=== PATIENT | female | born 1955 | race Caucasian/White ===

== ENCOUNTER → 2020-10-04 | Outpatient (CLI) | payer MEDICARE ==
[2020-10-04 11:05] LABS: Basophils # (A) 0.1 k/uL (0-0.2); Basophils % (A) 1 %; Eosinophils # (A) 0.2 k/uL (0-0.7); Eosinophils % (A) 2 %; HCT 44.2 % (34.0-46.0); Lymphocytes # (A) 1.5 k/uL (1.0-4.8); Lymphocytes % (A) 21 %; MCH 30.7 pg (25.0-35.0); MCV 90.4 fL (80.0-100.0); Mean Platelet Volume 6.7; Monocytes # (A) 0.4 k/uL (0-1.0); Monocytes % (A) 6 %; Neutrophils % (A) 69 %; Platelet Count 207 k/uL (150-450); RBC 4.89 m/uL (3.80-5.40); RDW 13.3 % (11.5-15.5); WBC 7.3 k/uL (3.8-10.6)
[2020-10-04 11:18] LABS: African American GFR (CKD) >90 (>60 ml/min/1.73 sqM); Anion Gap 7 mmol/L; Blood Urea Nitrogen 13 mg/dL (7-17); Calcium 10.3 mg/dL (8.4-10.2); Carbon Dioxide 31 mmol/L (22-30); Chloride 104 mmol/L (98-107); Glucose 104 mg/dL (74-99); Non-African American GFR(CKD) >90 (>60 ml/min/1.73 sqM); Potassium 5.5 mmol/L (3.5-5.1); Sodium 142 mmol/L (137-145)
== END | disposition home or self-care (01) ==
LOC: LABPAT 10:12
PROVIDERS: ATTEND Obstetrics & Gynecology
DX: Z01.812 Encounter for preprocedural laboratory examination (principal); N81.9 Female genital prolapse, unspecified; N81.10 Cystocele, unspecified
CPT/HCPCS: 36415; 80048; 85025; 86850; 86900; 86901

== ENCOUNTER 2020-10-11 09:49 | Day surgery (SDC) | payer MEDICARE ==
[2020-10-05 10:20] VITALS: BMI 28.3
[~2020-10-11 09:49] MED LIST: DEXAMETHASONE SOD PHOSPHATE 4 MG/ML 1 ML VIAL IV ONE; HYDROmorphone 0.5 MG/0.5 ML SYRINGE IVP PRN; LIDOCAINE 1% (10MG/ML) FOR IV START INTRADERMA PRN; MIDAZOLAM 2 MG/2 ML VIAL IV PRN; ONDANSETRON 4 MG/2 ML VIAL IVP ONE
--- NOTE | 2020-10-11 09:51 | P.HPOB ---
History of Present Illness H&P Date: 10/11/20 Chief Complaint: Uterine prolapse Magdalena is a 65-year-old female with worsening vaginal prolapse. Symptoms have been worsening over a number of months and it has gotten to the point where she is uncomfortable and unable to function well due to same. She is scheduled for a robotic-assisted laparoscopic hysterectomy with bilateral salpingo- oophorectomy and combined with urology performing a sacral colpopexy. Risks/benefits/alternatives were reviewed with the patient in great detail and all questions have been answered for her prior to proceeding to the operating room. He has been cleared by cardiology for this surgery. Will have medicine on consultation for management of medical issues. Past Medical History Past Medical History: Cancer, GI Bleed, Hyperlipidemia, Hypertension, Skin Disorder Additional Past Medical History / Comment(s): hx squamous cell skin cancer, bladder prolapse History of Any Multi-Drug Resistant Organisms: None Reported Past Surgical History: Appendectomy, Cholecystectomy, Heart Catheterization, Tubal Ligation Additional Past Surgical History / Comment(s): aortic valve replacement, COLONOSCOPY Past Anesthesia/Blood Transfusion Reactions: Postoperative Nausea & Vomiting (PONV) Smoking Status: Never smoker - Past Family History Mother Family Medical History: Cancer Additional Family Medical History / Comment(s): breast Medications and Allergies Home Medications Medication Instructions Recorded Confirmed Type Aspirin [Adult Low Dose Aspirin EC] 2 tab PO DAILY 12/11/15 10/05/20 History Atorvastatin [Lipitor] 10 mg PO HS 12/11/15 10/05/20 History Losartan [Cozaar] 50 mg PO HS 12/11/15 10/05/20 History Metoprolol Tartrate [Lopressor] 50 mg PO BID 12/11/15 10/05/20 History Multivitamins, Thera [Multivitamin] 1 tab PO DAILY 12/11/15 10/05/20 History Allergies Allergy/AdvReac Type Severity Reaction Status Date / Time No Known Allergies Allergy Verified 10/05/20 09:59 Exam Osteopathic Statement: *. No significant issues noted on an osteopathic structural exam other than those noted in the History and Physical/Consult. - OBG Physical Exam Breast: both: normal (no masses) Abdomen: bowel sounds normal, no diffuse tenderness, no bruit present, no guarding noted, no hepatomegaly, no splenomegaly, no mass Vulva: both: normal Vagina: normal moisture, no discharge Cervix: no lesion, no discharge Uterus: normal size, normal contour Adnexa: both: normal Anus/Rectum: normal perianal skin, no rectal mass, no hemorrhoids, heme negative
[2020-10-11] MEDS: LACTATED RINGERS 1,000 ML IV SCH (10:29)
[2020-10-11] MEDS ORDERED: MIDAZOLAM 2 MG/2 ML VIAL ONE (11:36)
[2020-10-11] MEDS ORDERED: NEOSTIGMINE 1 MG/ML 10 ML VIAL ONE (11:36)
[2020-10-11] MEDS ORDERED: LIDOCAINE 1% INJ 10MG/ML (20 ML MDV) ONE (11:36)
[2020-10-11] MEDS ORDERED: PHENYLEPHRINE-0.9% NACL SYG 1,000 MCG/10 ML SYRINGE ONE (11:36)
[2020-10-11] MEDS ORDERED: PROPOFOL 10 MG/ML 20 ML VIAL IV ONE ×2 (11:36)
[2020-10-11] MEDS ORDERED: LIDOCAINE 2%-EPI 1:100,000 20 ML VIAL ONE (11:36)
[2020-10-11] MEDS ORDERED: fentaNYL (PF) 50 MCG/ML 2 ML AMP ONE (11:36)
[2020-10-11] MEDS ORDERED: GLYCOPYRROLATE 0.2 MG/ML 2 ML VIAL ONE (11:36)
[2020-10-11] MEDS ORDERED: ceFAZolin 1,000 MG VIAL ONE (11:36)
[2020-10-11] MEDS ORDERED: SODIUM CHLORIDE 0.9% 100 ML BAG ONE (11:36)
[2020-10-11] MEDS ORDERED: ROCURONIUM 10 MG/ML (5 ML VIAL) IV ONE (11:36)
[2020-10-11] MEDS ORDERED: ROPIVACAINE 5 MG/ML 30 ML VIAL ONE (11:36)
--- NOTE | 2020-10-11 12:10 | P.HPIHPCON ---
History of Present Illness H&P Date: 10/11/20 Chief Complaint: Cystocele This is a 65 yo female with hx of stage III cystocele. She is symptomatic secondary to her prolapse. Option of pessary, vaginal repair and Robotic sacrocolpopexy were discussed with her in details. Discussed risk and benefit of each approach. She agreed to proceed with robotic assisted laproscopic sacrocolpopexy, she will also undergo robotic hysterectomy at the same time. Discussed with her for the sacrocolpopexy we will be using mesh. Discussed risk of mesh erosion through the vagina, bladder and rectum. Discussed potential of needing additional operation in the future. Discussed risk of recurrence. She understood all risks and agreed to proceed. Consent for Procedure: I have explained the operation/procedure to the patient, including the risks, benefits, side effects, alternative therapies (including not receiving the proposed treatment or service), the likelihood of the patient achieving his/her goals, and potential recuperation problems for the procedure/sedation/analgesia, as well as any blood products, if indicated. I also explained to the patient the risks, benefits and side effects of the alternatives, as well as the risks related to not receiving the proposed procedure, care, treatment, or services. Past Medical History Past Medical History: Cancer, GI Bleed, Hyperlipidemia, Hypertension, Skin Disorder Additional Past Medical History / Comment(s): hx squamous cell skin cancer, bladder prolapse History of Any Multi-Drug Resistant Organisms: None Reported Past Surgical History: Appendectomy, Cholecystectomy, Heart Catheterization, Tubal Ligation Additional Past Surgical History / Comment(s): aortic valve replacement, COLONOSCOPY Past Anesthesia/Blood Transfusion Reactions: Postoperative Nausea & Vomiting (PONV) Smoking Status: Never smoker - Past Family History Mother Family Medical History: Cancer Additional Family Medical History / Comment(s): breast Medications and Allergies Home Medications Medication Instructions Recorded Confirmed Type Aspirin [Adult Low Dose Aspirin EC] 2 tab PO DAILY 12/11/15 10/11/20 History Atorvastatin [Lipitor] 10 mg PO HS 12/11/15 10/11/20 History Losartan [Cozaar] 50 mg PO HS 12/11/15 10/11/20 History Metoprolol Tartrate [Lopressor] 50 mg PO BID 12/11/15 10/11/20 History Multivitamins, Thera [Multivitamin] 1 tab PO DAILY 12/11/15 10/11/20 History Allergies Allergy/AdvReac Type Severity Reaction Status Date / Time No Known Allergies Allergy Verified 10/11/20 10:22 Surgical - Exam Vital Signs Temp Pulse Resp BP Pulse Ox 97.3 F L 57 L 16 145/67 99 10/11/20 10:15 10/11/20 10:15 10/11/20 10:15 10/11/20 10:15 10/11/20 10:15 Results - Labs 10/11/20 10:39
[2020-10-11] MEDS ORDERED: BUPIVACAINE (PF) 0.25% 30 ML VIAL SQ ONE ×2 (12:18)
--- NOTE | 2020-10-11 13:19 | P.OP ---
Date of Procedure: 10/11/20 Preoperative Diagnosis: Uterine prolapse Postoperative Diagnosis: Same Procedure(s) Performed: Robotic-assisted laparoscopic hysterectomy with bilateral salpingo-oophorectomy Anesthesia: EDDIE Surgeon: Benitez Colby Special Delivery Mail Carrier #1: Sushma Modi Estimated Blood Loss (ml): 100 Pathology: other (Uterus, cervix, fallopian tubes and bilateral ovaries) Condition: stable Disposition: floor Operative Findings: Complete procidentia Description of Procedure: She will was taken to the operating suite where a general anesthetic was found be adequate. She was prepped and draped in the normal sterile fashion and placed in the dorsal lithotomy position. Initially a weighted speculum was inserted in the vagina and into lip of cervix identified and grasped with single-tooth tenaculum. Cervix was then dilated and uterus was sounded to 10 cm. Zoey manipulator was then inserted without difficulty the cup size of 2.5 sutures placed at 3 and 9 to assist in pulling the cervix completely down into the cup due to the complete procidentia. Once this was completed Lin cath was placed other incidents removed and gloves were changed. Attention was then turned to the abdominal portion procedure where 2 mL of quarter percent Marcaine was injected superior to the umbilicus and through this a 5 mm skin incision was made and through this a 5 mm trocar and sleeve were inserted with optical under direct visualization. Once peritoneal placement was assured gas was allowed to fully insufflate the abdomen and patient was then placed in steep Trendelenburg position. 2 lateral ports were then placed section on the same line as the um bilicus 10 cm lateral to umbilicus. A fourth port and sleeve was inserted through a 1 cm incision between the left lateral and the medial ports. Robot was then brought in and docked and once fully docked a scissor and [place] grasper were placed. At this point I broke scrub and went to the console. Uterus was elevated and tipped to the right side and the left infundibular pelvic ligament was identified cauterized and transected. Moving through the mesosalpinx tissue the ovary was dissected free by cautery and cutting. Once to the round ligament Remley was arise transected and anterior posterior leafs the broad ligament were developed. Uterine vasculature was then cauterized through the cardinal and uterosacral ligaments. Once this was completed bladder flap was identified and entered and undermined with [place] and incised across face uterus with a scissor. Bladder flap was then bluntly dissected, the out of the operative field. Once completed similar fashion the right side of the uterus was developed. Once this was completed balloon was blown up in the Zoey manipulator and the uterus was firmly pressed in an anterior colpotomy was made. This cup was then followed around 3 and 60 following the cup the hallway maintaining excellent hemostasis through the process. Once uterus was free was brought into the vagina to maintain pneumoperitoneum. Pedicles were then ve rified hemostatic and then the vaginal cuff was closed with to OB lock suture in a running fashion. At this point urology took over the case please see their dictation for the conclusion of the procedure.
[2020-10-11] MEDS ORDERED: LACTATED RINGERS 1,000 ML IV ONE ×2 (13:26→16:31)
--- NOTE | 2020-10-11 15:19 | P.OP ---
Date of Procedure: 10/11/20 Preoperative Diagnosis: cystocele Postoperative Diagnosis: same Procedure(s) Performed: Robotic assisted laproscopic Sacrocolpopexy Implants: Mesh Anesthesia: ESTHELAA Surgeon: Siddhartha Leon Design Analyst #1: Wyatt Garrett Estimated Blood Loss (ml): 25 Pathology: other Condition: stable Disposition: PACU Indications for Procedure: This is a 65 yo female with hx of stage III cystocele. She is symptomatic secondary to her prolapse. Option of pessary, vaginal repair and Robotic sacrocolpopexy were discussed with her in details. Discussed risk and benefit of each approach. She agreed to proceed with robotic assisted laproscopic sacrocolpopexy, she will also undergo robotic hysterectomy at the same time. Discussed with her for the sacrocolpopexy we will be using mesh. Discussed risk of mesh erosion through the vagina, bladder and rectum. Discussed potential of needing additional operation in the future. Discussed risk of recurrence. She understood all risks and agreed to proceed Description of Procedure: She was taken to the OR and administered general anesthesia and placed in lithotomy position. She was prepped and draped in sterile fashion. A Lin catheter was placed. Initially the robotic hysterctomy was performed by Dr Colby, please see his op note for that portion of surgery. An additional 8 mm robotic port was placed medially on the left. The robot was re docked and the administration assistant sat between the patient's legs with a vaginal sizer. With firm upward traction on the vagina and angle downwards, and with the monopolar scissors and fenestrated bipolar and the bladder was completely reflected off the vagina. The pelvic floor. Care was taken to stay in the avascular plane between the bladder and the vagina. There was no entry into the bladder or the vagina. Minor bleeding points were controlled with bipolar. Once the anterior dissection was completed the attention was directed to the posterior dissection. The administration assistant pushed the sizer in an upwards and the r ectum was completely dissected off the vagina down to the perineal body. Again all minor bleeding points were coagulated. Tension was then directed to the sacral promontory. The sigmoid was reflected to the left with the fourth arm, and an incision was made on the peritoneum over the sacral promontory. The entire sacral promontory was dissected, and the fat was excised to expose adequate amount of periosteum and bone to place 2 layers of sutures. Hemostasis was confirmed. The peritoneum posteriorly was incised from the sacral promontory to the vaginal opening to facilitate placement of the mesh. Attention was now directed to the Y mesh. The Y mesh was trimmed to the necessary size and introduced into the body through the 12 mm port. The Y mesh was placed over the vagina with one limb each on the anterior and posterior vaginal wall. Using 2-0 Ethibond interrupted sutures 3 layers of sutures were placed thereby fixing the mesh to the anterior vaginal wall. Care was taken to advance the mesh all the way distally. Attention was then directed to the posterior vaginal wall and the mesh was fixed to the posterior vaginal wall using 3 layers of 2-0 Ethibond, 2 sutures in each layer. Again the sutures were placed as distally as possible to the perineal body. Attention was taken so as to not enter the vagina with the sutures. Once the 2 limbs of the Y mesh was securely placed, attention was directed to the sacral promontory. The administration assistant was asked to push the sizer firmly superiorly and the single Lembert of the Y mesh was then fixed to the sacral promontory in 2 layers with interrupted sutures. 2-0 PDS interrupted sutures were used to fix the mesh to the periosteum of the sacral promontory. Once this was completed the sizer was removed from the vagina and inspection of the vagina with a speculum showed complete resolution of the cystocele. Hemostasis was again confirmed. A 2-0 lock was then used to close the peritoneum incision so as to extrapertonialize the mesh completely. The 12 mm administration assistant port was closed using a danita-thompason using 0 Vicryl. All the sutures and mesh pieces were removed. A count was performed which was correct. And the abdomen was desufflated and all ports were removed. All the incisions were closed with 4-0 Monocryl subcuticular sutures and the patient was sent to recovery in stable condition with the Lin catheter
[2020-10-11] MEDS ORDERED: HYDROcodone/APAP 5-325MG 1 EACH TAB PO PRN (15:21)
[2020-10-11] MEDS ORDERED: KETOROLAC 15 MG/ML 1 ML VIAL IVP ONE (16:09)
[2020-10-11] MEDS ORDERED: D5-0.45% NACL WITH KCL 20MEQ/L 1,000 ML IV SCH (16:30)
[2020-10-11] MEDS: KETOROLAC 15 MG/ML 1 ML VIAL IVP SCH (17:07)
[2020-10-11] MEDS: HEPARIN SODIUM,PORCINE/PF 5,000 UNIT/0.5 ML SYRINGE SQ SCH (17:25)
[2020-10-11] MEDS: DEXTROSE 5%-0.45% NACL 1,000 ML IV SCH (17:26)
--- NOTE | 2020-10-11 20:11 | P.ANPRN ---
Procedure Note - Anesthesia - Nerve Block Performed Bilateral Erector Spinae Single Time Out Performed: Yes Date of Procedure: 10/11/20 Procedure Start Time: Procedure Stop Time: Location of Patient: PreOp Indication: Acute Post-Operative Pain, Requested by Surgeon Sedation Type: Sedate with meaningful contact maintained Preparation: Sterile Prep Position: Prone Needle Types: Pajunk Needle Gauge: 21 Ultrasound used to visualize needle placement: Yes Ultrasound used to observe medication spread: Yes Blood Aspirated: No Pain Paresthesia on Injection Noted: No Resistance on Injection: Normal Image Stored and Saved: Yes Events: Uneventful and Well Tolerated (Ropivacaine 0.5% 15 mL plus Xylocaine 1% with epi 13 mL given at L1 bilaterally)
[2020-10-11] MEDS: ATORVASTATIN 10 MG TAB PO SCH (20:37)
[2020-10-11] MEDS: METOPROLOL TARTRATE 50 MG TAB PO SCH (21:05)
[2020-10-12] MEDS: HEPARIN SODIUM,PORCINE/PF 5,000 UNIT/0.5 ML SYRINGE SQ SCH ×4 (00:26→23:31)
[2020-10-12] MEDS: KETOROLAC 15 MG/ML 1 ML VIAL IVP SCH ×5 (00:26→23:31)
[2020-10-12] MEDS: DEXTROSE 5%-0.45% NACL 1,000 ML IV SCH ×3 (05:00→17:00)
[2020-10-12] MEDS: LACTATED RINGERS 1,000 ML IV SCH (05:54)
[2020-10-12] MEDS: METOPROLOL TARTRATE 50 MG TAB PO SCH ×2 (09:02→20:24)
--- NOTE | 2020-10-12 09:16 | P.PN ---
Progress Note - Text Progress Note Date: 10/12/20 Magdalena is seen and evaluated postop day 1. Overall she is doing very well. She voices minimal complaints and only has mild pain. Her Lin catheter still in place and is potentially a little concentrated but this will be deferred to urology. Her vital signs are otherwise stable, infection blood pressures a little low this morning the help her blood pressure medication. From a gynecologic standpoint she should be able to be discharged whenever urology feel she is able to go home. We'll have her follow up with me in 2 weeks as she is up appointment with urology in 1 week but she is aware that she can contact me at any time of be happy to see her sooner if needed. All the questions are answered for her at this time and will plan to see her in approximately 2 weeks. Discharge instructions and discharge planning will be done by urology.
--- NOTE | 2020-10-12 15:38 | P.CONS ---
History of Present Illness - Reason for Consult Consult date: 10/12/20 medical management hypertension,PONV Requesting physician: Benitez Colby - Chief Complaint Uterine prolapse, status post robotic-assisted laparoscopic hysterectomy wi - History of Present Illness This is 65-year-old female admitted with uterine prolapse, cystocele, status p ost robotic-assisted laparoscopic hysterectomy and bilateral salpingo- oophorectomy, sacrocolpopexy. Tolerated procedure well. Passing flatus. Stood up at bedside and marched, tolerating exertion well. Good diet intake with no nausea vomiting or diarrhea. Minimal discomfort ,pain controlled. Borderline hypotension, systolic blood pressure 100, receiving IV fluid hydration. Afebrile. Denies chest pain, palpitations or shortness of breath. Review of Systems Constitutional: Denied any fatigue denied any fever. Cardio vascular: denied any chest pain, palpitations Gastrointestinal denied any nausea vomiting Pulmonary: Denied any shortness of breath cough Neurologic denied any new focal deficits ROS Statement: Those systems with pertinent positive or pertinent negative responses have been documented in the HPI. ROS Other: All systems not noted in ROS Statement are negative. Past Medical History Past Medical History: Cancer, GI Bleed, Hyperlipidemia, Hypertension, Skin Disorder Additional Past Medical History / Comment(s): hx squamous cell skin cancer, bladder prolapse History of Any Multi-Drug Resistant Organisms: None Reported Past Surgical History: Appendectomy, Cholecystectomy, Heart Catheterization, Tubal Ligation Additional Past Surgical History / Comment(s): aortic valve replacement, COLONOSCOPY Past Anesthesia/Blood Transfusion Reactions: Postoperative Nausea & Vomiting (PONV) Past Psychological History: No Psychological Hx Reported Smoking Status: Never smoker Past Alcohol Use History: None Reported Past Drug Use History: None Reported - Past Family History Mother Family Medical History: Cancer Additional Family Medical History / Comment(s): breast Medications and Allergies Home Medications Medication Instructions Recorded Confirmed Type Aspirin [Adult Low Dose Aspirin EC] 2 tab PO DAILY 12/11/15 10/11/20 History Atorvastatin [Lipitor] 10 mg PO HS 12/11/15 10/11/20 History Losartan [Cozaar] 50 mg PO HS 12/11/15 10/11/20 History Metoprolol Tartrate [Lopressor] 50 mg PO BID 12/11/15 10/11/20 History Multivitamins, Thera [Multivitamin] 1 tab PO DAILY 12/11/15 10/11/20 History Allergies Allergy/AdvReac Type Severity Reaction Status Date / Time No Known Allergies Allergy Verified 10/11/20 10:22 Physical Exam Vitals: Vital Signs Temp Pulse Resp BP BP BP Pulse Ox 10/12/20 08:20 98.0 F 62 20 100/61 96 10/12/20 02:02 98.1 F 68 16 100/57 95 10/11/20 22:06 93 L 10/11/20 21:08 100 10/11/20 19:45 70 16 121/75 97 10/11/20 18:45 73 16 110/67 93 L 10/11/20 18:15 68 16 117/71 93 L 10/11/20 17:45 64 16 112/68 93 L 10/11/20 17:30 61 16 125/68 97 10/11/20 17:15 63 16 119/71 95 10/11/20 17:00 98.1 F 62 14 120/61 98 10/11/20 16:35 63 16 107/54 96 10/11/20 16:20 60 16 127/60 98 10/11/20 16:05 57 L 16 123/64 100 10/11/20 15:50 57 L 16 113/62 100 10/11/20 15:39 96.8 F L 16 L 16 153/62 98 Intake and Output 10/12/20 10/12/20 10/12/20 06:59 14:59 22:59 Intake Total 1100 Output Total 900 Balance 200 Intake: Intake, IV Titration 700 Amount Dextrose 5%-0.45% NaCl 1, 700 000 ml @ 125 mls/hr IV . Q8H [facility] Rx#:[id number] Oral 400 Output: Urine 900 Other: Voiding Method Indwelling Catheter Indwelling Catheter PHYSICAL EXAM: VITAL SIGNS: As above GENERAL: Sitting up in bed, no acute distress HEENT: Conjunctivae normal. eyes normal. Oral mucosa moist NECK: No JVD. No thyroid enlargement. No LNs CARDIOVASCULAR: S1, S2 regular..No murmur RESPIRATION: Breath sounds diminished in the bases. No rhonchi or crackles. No bronchial breathing. ABDOMEN: Soft, nondistended, status post surgery . No guarding. Bowel sounds heard. LEGS: No edema. no swelling PSYCHIATRY: Alert and oriented X3, mood and affect normal. NERVOUS SYSTEM: Cranial N 2-12 grossly normal. Moves all 4 limbs.No focal deficits. Strength and sensation grossly intact. Skin: Warm and dry, no rash Lymphatic system. No LN neck axilla. Results CBC & Chem 7: 10/11/20 10:39 Assessment and Plan Assessment: uterine prolapse, cystocele, status post robotic-assisted laparoscopic hysterectomy and bilateral salpingo-oophorectomy, sacrocolpopexy. Hypertension hyperlipidemia Squamous cell skin cancer history of Plan: Continue on current medication regime, monitoring and to make treatment. Labs pending. Gentle IV fluid hydration. Patient eager for discharge. Lin catheter present, managed by urology. Increase ambulation as tolerated. Aggressive pulmonary toileting with incentive spirometer reinforced. Follow-up with primary in 1 week after discharge. Thank you for the consult of this pleasant lady. The impression and plan of care has been dictated as directed. : I performed a history and examination of this patient, discussed the same with the dictator. I agree with the dictator's note ,documented as a scribe. Any additional findings or plans will be noted.
[2020-10-12 16:12] LABS: Basophils % (A) 0 %; Eosinophils # (A) 0.1 k/uL (0-0.7); Eosinophils % (A) 1 %; HCT 33.4 % (34.0-46.0); Lymphocytes # (A) 1.6 k/uL (1.0-4.8); Lymphocytes % (A) 20 %; MCH 30.2 pg (25.0-35.0); MCHC 33.1 g/dL (31.0-37.0); Mean Platelet Volume 7.4; Monocytes # (A) 0.4 k/uL (0-1.0); Monocytes % (A) 5 %; Neutrophils # (A) 5.7 k/uL (1.3-7.7); Neutrophils % (A) 72 %; Platelet Count 118 k/uL (150-450); RBC 3.67 m/uL (3.80-5.40); WBC 7.8 k/uL (3.8-10.6)
[2020-10-12 16:21] LABS: African American GFR (CKD) >90 (>60 ml/min/1.73 sqM); Anion Gap 3 mmol/L; Blood Urea Nitrogen 18 mg/dL (7-17); Calcium 8.4 mg/dL (8.4-10.2); Carbon Dioxide 25 mmol/L (22-30); Chloride 100 mmol/L (98-107); Glucose 114 mg/dL (74-99); Non-African American GFR(CKD) >90 (>60 ml/min/1.73 sqM); Potassium 3.5 mmol/L (3.5-5.1); Sodium 128 mmol/L (137-145)
[2020-10-12 16:32] LABS: HGB 11.1 gm/dL (11.4-16.0)
[2020-10-12] MEDS: PANTOPRAZOLE 40 MG/10 ML VIAL IVP SCH (16:54)
--- NOTE | 2020-10-12 17:30 | P.PN ---
Progress Note - Text Progress Note Date: 10/12/20 The patient is feeling well. She is tolerating diet and ambulating. The Lin catheter is draining clear yellow urine. The abdomen is soft and nondistended. She is afebrile with stable vital signs. The Lin catheter will be removed tomorrow morning. Discharge home tomorrow is anticipated.
[2020-10-12 20:20] VITALS: PULSE 67
[2020-10-12] MEDS: ATORVASTATIN 10 MG TAB PO SCH (20:22)
[2020-10-13] MEDS: DEXTROSE 5%-0.45% NACL 1,000 ML IV SCH ×2 (01:51→08:41)
[2020-10-13] MEDS: KETOROLAC 15 MG/ML 1 ML VIAL IVP SCH (05:53)
[2020-10-13] MEDS: LACTATED RINGERS 1,000 ML IV SCH (05:56)
[2020-10-13 08:28] VITALS: BP 132/75; RESP 18; TEMP 97.8
[2020-10-13] MEDS: PANTOPRAZOLE 40 MG/10 ML VIAL IVP SCH (08:40)
[2020-10-13] MEDS: HEPARIN SODIUM,PORCINE/PF 5,000 UNIT/0.5 ML SYRINGE SQ SCH (08:40)
[2020-10-13] MEDS: METOPROLOL TARTRATE 50 MG TAB PO SCH (08:40)
[2020-10-13] MEDS ORDERED: DEXTROSE 5%-0.9% NACL 1,000 ML IV SCH (10:30)
--- NOTE | 2020-10-13 10:48 | P.DS ---
Providers Expected date of discharge: 10/13/20 Attending physician: Benitez Colby Consults: 10/11/20 17:42 Consult Physician Routine Consulting Provider: Joseph Arvizu Reason/Comments: medical management Do you want consulting provider notified?: Yes Primary care physician: Joseph Arvizu Hospital Course: On the day of admission, the patient underwent an uncomplicated hysterectomy, bilateral salpingo-oophorectomy, and sacrocolpopexy. On the first postoperative day, she was ambulating without difficulty. On the second postoperative day, she reported minimal incisional discomfort. The Lin catheter was removed on the second postoperative day, and she was able to void without difficulty. She denied chest pain, dyspnea, nausea, and vomiting. Procedures: Robotic-assisted laparoscopic hysterectomy, bilateral salpingo-oophorectomy, and sacrocolpopexy on 10/11/2020. Patient Condition at Discharge: Good Plan - Discharge Summary Discharge Rx Participant: No New Discharge Prescriptions: New Ketorolac [Toradol] 10 mg PO Q6HR PRN #12 tab PRN Reason: Pain No Action Multivitamins, Thera [Multivitamin] 1 tab PO DAILY Aspirin [Adult Low Dose Aspirin EC] 2 tab PO DAILY Metoprolol Tartrate [Lopressor] 50 mg PO BID Atorvastatin [Lipitor] 10 mg PO HS Losartan [Cozaar] 50 mg PO HS Discharge Medication List Aspirin [Adult Low Dose Aspirin EC] 2 tab PO DAILY 12/11/15 [History] Atorvastatin [Lipitor] 10 mg PO HS 12/11/15 [History] Losartan [Cozaar] 50 mg PO HS 12/11/15 [History] Metoprolol Tartrate [Lopressor] 50 mg PO BID 12/11/15 [History] Multivitamins, Thera [Multivitamin] 1 tab PO DAILY 12/11/15 [History] Ketorolac [Toradol] 10 mg PO Q6HR PRN #12 tab 10/13/20 [Rx] Follow up Appointment(s)/Referral(s): Benitez Colby DO [Doctor of Osteopathic Medicine] - 2 Weeks Siddhartha Leon MD [STAFF PHYSICIAN] - 1 Week Activity/Diet/Wound Care/Special Instructions: Diet as tolerated. No lifting or strenuous activity. Discharge Disposition: HOME SELF-CARE
[2020-10-13] MEDS ORDERED: POTASSIUM CHLORIDE ER 20 MEQ TAB.ER PO STA (10:52)
--- NOTE | 2020-10-13 17:11 | P.PN ---
Subjective 65-year-old female admitted with uterine prolapse, cystocele, status post robotic-assisted laparoscopic hysterectomy and bilateral salpingo-oophorectomy, sacrocolpopexy. patient is clinically doing well patient. Patient is presently bit hypotensive which is expected in the perioperative period patient was started back on metoprolol and the patient is also on KAITLIN inhibitor which is being held at this time patient was asked to start this medication from the after tomorrow blood pressure is expected to go up. Constitutional: Denied any fatigue denied any fever. Cardio vascular: denied any chest pain, palpitations Gastrointestinal denied any nausea vomiting Pulmonary: Denied any shortness of breath cough Neurologic denied any new focal deficits All inpatient medications were reviewed and appropriate changes in these medications as dictated in the interval history and assessment and plan. Objective - Vital Signs Vital signs: Vital Signs Temp 97.8 F 10/13/20 08:15 Pulse 67 10/13/20 08:15 Resp 18 10/13/20 08:15 BP 132/75 10/13/20 08:15 Pulse Ox 95 10/13/20 08:15 Intake & Output 10/12/20 10/13/20 10/13/20 18:59 06:59 18:59 Intake Total 600 Output Total 900 3400 1200 Balance -900 -2800 -1200 Intake: Oral 600 Output: Urine 900 3400 1200 Other: Voiding Method Indwelling Catheter Indwelling Catheter - Exam PHYSICAL EXAMINATION: GENERAL: The patient is alert and oriented x3, not in any acute distress. Well developed, well nourished. HEENT: Pupils are round and equally reacting to light. EOMI. No scleral icterus. No conjunctival pallor. Normocephalic, atraumatic. No pharyngeal erythema. No thyromegaly. CARDIOVASCULAR: S1 and S2 present. No murmurs, rubs, or gallops. PULMONARY: Chest is clear to auscultation, no wheezing or crackles. ABDOMEN: Soft, nontender, nondistended, normoactive bowel sounds. No palpable organomegaly. surgical site areas look clean MUSCULOSKELETAL: No joint swelling or deformity. EXTREMITIES: No cyanosis, clubbing, or pedal edema. NEUROLOGICAL: Gross neurological examination did not reveal any focal deficits. SKIN: No rashes. - Labs CBC & Chem 7: 10/12/20 15:56 10/12/20 15:56 Assessment and Plan Plan: uterine prolapse, cystocele, status post robotic-assisted laparoscopic hysterectomy and bilateral salpingo-oophorectomy, sacrocolpopexy. she is clinically doing well and is being discharged today. Hypertension: Management as mentioned above hyperlipidemia: Continue with sta statin
== END 2020-10-13 11:15 | disposition home or self-care (01) ==
LOC: OR 09:49 → 6PED 15:39 → OR 10-13 11:15
PROVIDERS: ATTEND Obstetrics & Gynecology
DX: N81.3 Complete uterovaginal prolapse (principal); N80.0 Endometriosis of uterus; I10 Essential (primary) hypertension; E78.5 Hyperlipidemia, unspecified; I25.10 Atherosclerotic heart disease of native coronary artery without angina pectoris; I95.9 Hypotension, unspecified; Z82.49 Family history of ischemic heart disease and other diseases of the circulatory system; Z90.89 Acquired absence of other organs; Z95.2 Presence of prosthetic heart valve; Z87.19 Personal history of other diseases of the digestive system; Z85.828 Personal history of other malignant neoplasm of skin; Z95.1 Presence of aortocoronary bypass graft; Z90.49 Acquired absence of other specified parts of digestive tract; Z98.51 Tubal ligation status; Z98.890 Other specified postprocedural states; Z79.82 Long term (current) use of aspirin; Z79.899 Other long term (current) drug therapy
CPT/HCPCS: 58571; 57425; 64999; 80048; 84132; 85025; 88307; C1781; J2250; J1100; J2710; J0690 ×2; J2405; J2001; J3010; J2795; J1885 ×3; J2370; J2704; C9113 ×2; J1170; J1644 ×3; 86850; 86900; 86901